=== PATIENT | male | born 1990 | race Caucasian/White ===

== ENCOUNTER 2020-11-06 16:10 | Emergency (ER) | payer BC ==
[~2020-11-06] VITALS: Ht 188 cm; Wt 143.1 kg
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
[2020-11-06] MEDS ORDERED: METHOCARBAMOL 750 MG TABLET ONE (16:42)
[2020-11-06] MEDS ORDERED: METHOCARBAMOL 750 MG TABLET PO ONE (17:00)
--- NOTE | 2020-11-06 17:23 | NUR ---
ua collected and walked to lab, pending at thistime. pt resting on sarah simmons nadn.
[2020-11-06 18:18] LABS: MICROSCOPIC INDICATED
[2020-11-06 19:03] VITALS: BP 126/72
--- NOTE | 2020-11-06 19:03 | NUR ---
pt resting in bed, vss, nadn. awaiting ua results and dispo
[2020-11-06] MEDS ORDERED: KETOROLAC 60 MG/2 ML ONE (19:20)
[2020-11-06] MEDS ORDERED: KETOROLAC 30 MG/1 ML IM ONE (19:30)
--- NOTE | 2020-11-06 19:39 | NUR ---
pt medicated per order, educated on dc instructions, verbalized understanding. pt ambulatory to dc desk with steady gait.
== END 2020-11-06 19:44 | disposition home or self-care (01) ==
LOC: ED 19:38
DX: S30.1XXA Contusion of abdominal wall, initial encounter (principal); M79.18 Myalgia, other site; X58.XXXA Exposure to other specified factors, initial encounter; Y93.89 Activity, other specified; Y92.69 Other specified industrial and construction area as the place of occurrence of the external cause; Y99.0 Civilian activity done for income or pay
CPT/HCPCS: 81001; 96372; 99283; J1885